=== PATIENT | male | born 1980 | race Caucasian/White ===

== ENCOUNTER 2020-07-30 23:25 | Observation (INO) | payer SELFPAY ==
[~2020-07-30] VITALS: Ht 170.2 cm; Wt 113.5 kg
[2020-07-30] MEDS ORDERED: LACTATED RINGERS 1,000 ML IV ONE (23:55)
[2020-07-31] VITALS (7 sets, daily range): BP systolic 117–139; BP diastolic 84–91
[2020-07-31] MEDS ORDERED: ONDANSETRON 4 MG/2 ML (SDV) Z0FRAN IVP ONE
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
[2020-07-31 00:14] LABS: BASOPHILS % (AUTO) 0 % (0-10); EOSINOPHILS # (AUTO) 0.2 10^3/uL (0.0-0.3); EOSINOPHILS % (AUTO) 1 % (0-10); HEMATOCRIT 47 % (40-54); HEMOGLOBIN 15.2 g/dL (13.3-17.7); LYMPHOCYTES # (AUTO) 1.7 10^3/uL (1.0-4.0); LYMPHOCYTES % (AUTO) 14 % (12-44); MEAN CORPUSCULAR HEMOGLOBIN 29 pg (25-34); MEAN CORPUSCULAR HGB CONC 33 g/dL (32-36); MEAN CORPUSCULAR VOLUME 90 fL (80-99); MEAN PLATELET VOLUME 9.4 fL (9.0-12.2); MONOCYTES # (AUTO) 0.8 10^3/uL (0.0-1.0); MONOCYTES % (AUTO) 7 % (0-12); NEUTROPHILS # (AUTO) 9.5 10^3/uL (1.8-7.8); NEUTROPHILS % (AUTO) 78 % (42-75); PLATELET COUNT 313 10^3/uL (130-400); WHITE BLOOD COUNT 12.2 10^3/uL (4.3-11.0)
[2020-07-31 00:25] LABS: ALBUMIN 4.4 GM/DL (3.2-4.5); CHLORIDE 103 MMOL/L (98-107); POTASSIUM 4.7 MMOL/L (3.6-5.0); SODIUM 137 MMOL/L (135-145)
[2020-07-31 00:26] LABS: AMYLASE 54 U/L (25-125); CALCIUM 9.2 MG/DL (8.5-10.1)
[2020-07-31 00:27] LABS: GLUCOSE 117 MG/DL (70-105)
[2020-07-31 00:28] LABS: TOTAL PROTEIN 8.2 GM/DL (6.4-8.2)
[2020-07-31 00:29] LABS: BILIRUBIN,TOTAL 0.4 MG/DL (0.1-1.0); CARBON DIOXIDE 21 MMOL/L (21-32)
[2020-07-31 00:31] LABS: ALKALINE PHOSPHATASE 74 U/L (40-136); CREATININE SERUM 1.01 MG/DL (0.60-1.30); GFR ESTIMATED > 60
[2020-07-31 00:32] LABS: BUN/CREATININE RATIO 11
[2020-07-31 00:34] LABS: ALANINE AMINOTRANSFERASE 26 U/L (0-55); MAGNESIUM 2.3 MG/DL (1.6-2.4)
[2020-07-31 00:35] LABS: LIPASE 15 U/L (8-78)
--- NOTE | 2020-07-31 01:15 | NUR ---
Pt to CT by w/c.
[2020-07-31 02:04] LABS: BILIRUBIN,URINE NEGATIVE (NEGATIVE); CLARITY,URINE CLEAR; COLOR,URINE YELLOW; GLUCOSE, URINE (UA) NEGATIVE (NEGATIVE); KETONES,URINE NEGATIVE (NEGATIVE); LEUKOCYTE ESTERASE ,URINE NEGATIVE (NEGATIVE); NITRITE,URINE NEGATIVE (NEGATIVE); PH,URINE 7.5 (5-9); PROTEIN,URINE NEGATIVE (NEGATIVE)
[2020-07-31 02:19] LABS: BACTERIA,URINE TRACE /HPF; WBC,URINE 0-2 /HPF
[2020-07-31] MEDS ORDERED: fentaNYL INJECTION 100 MCG/2 ML AMP IVP ONE (02:30)
[2020-07-31] MEDS ORDERED: PANTOPRAZOLE 40 MG (PROTONIX) VIAL IV ONE (02:30)
--- NOTE | 2020-07-31 03:27 | NUR ---
ELAN COFFEY admitted to room 421-1, with an admitting diagnosis of SBO, on 07/31/20 from ED via , accompanied by Staff.ELAN COFFEY introduced to surroundings, call light, bed controls, phone, TV, temperature control, lights, meal times, smoking policy, visitor policy, side rail policy, bathrooms and showers. Patient Rights given to patient in the handbook. ELAN COFFEY verbalizes understanding that [facility] is not responsible for the loss or damage to any personal effects or valuables that are kept in the patients posession during their hospitalization. Patient and/or family were informed about the Rapid Response Team and its purpose.
[2020-07-31] MEDS ORDERED: ONDANSETRON 4 MG/2 ML (SDV) Z0FRAN IVP PRN (03:30)
[2020-07-31] MEDS: D5 1/2 NS W/KCL 20 MEQ 1000 ML IV SCH ×4 (04:18→23:56)
[2020-07-31 06:34] LABS: BASOPHILS % (AUTO) 0 % (0-10); EOSINOPHILS # (AUTO) 0.3 10^3/uL (0.0-0.3); EOSINOPHILS % (AUTO) 3 % (0-10); HEMATOCRIT 46 % (40-54); HEMOGLOBIN 14.6 g/dL (13.3-17.7); LYMPHOCYTES # (AUTO) 2.1 10^3/uL (1.0-4.0); LYMPHOCYTES % (AUTO) 21 % (12-44); MEAN CORPUSCULAR HEMOGLOBIN 29 pg (25-34); MEAN CORPUSCULAR HGB CONC 32 g/dL (32-36); MEAN CORPUSCULAR VOLUME 91 fL (80-99); MEAN PLATELET VOLUME 9.2 fL (9.0-12.2); MONOCYTES % (AUTO) 10 % (0-12); NEUTROPHILS # (AUTO) 6.8 10^3/uL (1.8-7.8); NEUTROPHILS % (AUTO) 67 % (42-75); PLATELET COUNT 275 10^3/uL (130-400); WHITE BLOOD COUNT 10.1 10^3/uL (4.3-11.0)
[2020-07-31 06:46] LABS: ALBUMIN 3.9 GM/DL (3.2-4.5); CHLORIDE 103 MMOL/L (98-107); POTASSIUM 4.1 MMOL/L (3.6-5.0); SODIUM 136 MMOL/L (135-145)
[2020-07-31 06:48] LABS: CALCIUM 8.5 MG/DL (8.5-10.1)
[2020-07-31 06:49] LABS: GLUCOSE 127 MG/DL (70-105); TOTAL PROTEIN 7.2 GM/DL (6.4-8.2)
[2020-07-31 06:50] LABS: BILIRUBIN,TOTAL 0.4 MG/DL (0.1-1.0); CARBON DIOXIDE 22 MMOL/L (21-32)
[2020-07-31 06:52] LABS: ALKALINE PHOSPHATASE 63 U/L (40-136); CREATININE SERUM 0.96 MG/DL (0.60-1.30); GFR ESTIMATED > 60
[2020-07-31 06:53] LABS: BUN/CREATININE RATIO 9
[2020-07-31 06:55] LABS: ALANINE AMINOTRANSFERASE 22 U/L (0-55)
[2020-07-31] MEDS ORDERED: FLU QUADRIvalent (3YOA+) 60 mcg/0.5 ml 2020-21 (AFLURIA) IM ONE (07:30)
[2020-07-31] MEDS: NICOTINE 21 MG (NICODERM) PATCH TD SCH (08:00)
[2020-07-31] MEDS: PANTOPRAZOLE 40 MG (PROTONIX) VIAL IV SCH (08:00)
[2020-07-31] MEDS: fentaNYL INJECTION 100 MCG/2 ML AMP IVP PRN ×4 (08:00→23:56)
[2020-07-31] MEDS ORDERED: CALC10009 PO (09:55)
[2020-07-31] MEDS ORDERED: POLY17PO6 PO (09:55)
[2020-07-31] MEDS ORDERED: IBUP-2473 PO (09:55)
[2020-07-31] MEDS ORDERED: LEVO5TAB12 PO (09:55)
[2020-07-31] MEDS ORDERED: MULT-1136 PO (09:55)
[2020-07-31] MEDS ORDERED: LORA10TA7 PO (09:55)
[2020-07-31] MEDS ORDERED: TETR15DR81 OU (09:55)
[2020-07-31] MEDS ORDERED: DOCU100T7 PO (09:55)
[2020-07-31] MEDS ORDERED: ACET-2267 PO (09:55)
--- NOTE | 2020-07-31 11:10 | NUR ---
SPOKE WITH THE PT TO COMPLETE THE MED REC PT DENIES TAKING ANY PRESCRIPTION MEDICATIONS OTC MEDS: DOCUSATE IBUPROFEN TYLENOL MTV MIRALAX TUMS CLARITIN XYZAL EYE DROPS FOR IRRITATION
[2020-07-31] MEDS ORDERED: PROMETHAZINE INJ 25 MG/ML (PHENERGAN) AMP IVP PRN (14:15)
[2020-07-31] MEDS ORDERED: HYDROcodone/APAP 7.5 MG/325 MG (LORTAB, LORCET PLUS) TABLET PO PRN (14:15)
--- NOTE | 2020-07-31 16:21 | NUR ---
DENZEL NOTIFED OF NEED FOR DVT KIMMY
--- NOTE | 2020-07-31 16:55 | NUR ---
DENZEL ANSARI [employer], REQUEST FOR DVT PROPHY
--- NOTE | 2020-07-31 17:10 | NUR ---
HARRY RETURNED MESSAGE, NEW ORDERS RECEIVED. PATIENT EDUCATED ON NEW ORDERS AND PAIN MANAGEMENT.
[2020-07-31] MEDS ORDERED: ENOXAPARIN 40 MG/0.4 ML (LOVENOX) SYR SC SCH (17:15)
[2020-08-01 04:00] VITALS: BP 120/75
[2020-08-01] MEDS: fentaNYL INJECTION 100 MCG/2 ML AMP IVP PRN (05:03)
[2020-08-01] MEDS: D5 1/2 NS W/KCL 20 MEQ 1000 ML IV SCH ×2 (06:26→13:48)
[2020-08-01 08:00] VITALS: BP 107/73
[2020-08-01] MEDS ORDERED: DIATRIZOATE MEGLUM/SODIUM 37% 120 ML (GASTROGRAFIN) PO ONE (08:45)
[2020-08-01] MEDS ORDERED: NICOTINE PATCH REMOVAL TP SCH (08:50)
[2020-08-01] MEDS: NICOTINE 21 MG (NICODERM) PATCH TD SCH (10:47)
[2020-08-01] MEDS: PANTOPRAZOLE 40 MG (PROTONIX) VIAL IV SCH (10:47)
--- NOTE | 2020-08-01 11:19 | NUR ---
HAVING LIQUID STOOL FROM OSTOMY POST SMALL BOWEL FOLLOW THROUGH.
[2020-08-01 12:00] VITALS: BP 127/87
--- NOTE | 2020-08-01 14:04 | NUR ---
IV REMOVED. DC ORDERS REC'D. PT STATES X 5 LARGE AMOUNT STOOL FROM OSTOMY. FLU VAC ADMINISTERED PER PT REQUEST. INSTRUCTED TO REMOVE NICOTINE PATCH IF HE CHOSES TO SMOKE AFTER DISCHARGE.
--- NOTE | 2020-08-01 14:34 | NUR ---
DC'D PER W/C TO HOME.
== END 2020-08-01 14:34 | disposition home or self-care (01) ==
LOC: ER 23:33 → 4TH 23:34 → UNDOADMOB 07-31 02:20 → 4TH 07-31 02:20 → UNDODISOB 08-01 14:35
PROVIDERS: ADMIT Surgery; ATTEND Surgery
DX: K56.609 Unspecified intestinal obstruction, unspecified as to partial versus complete obstruction (principal); F17.210 Nicotine dependence, cigarettes, uncomplicated; W19.XXXA Unspecified fall, initial encounter; Z93.3 Colostomy status
CPT/HCPCS: 74176; 74250; 80053; 81000; 82150; 83690; 83735; 85025; 96361; 96374; 96375; 99284; G0378; 36415; 90686

== ENCOUNTER 2020-11-01 15:22 | Emergency (ER) | payer OTHER, MEDICAID ==
[~2020-11-01] VITALS: Ht 170.1 cm; Wt 113.3 kg
[~2020-11-01 15:22] MED LIST: ACET-2267 PO; CALC10009 PO; DOCU100T7 PO; IBUP-2473 PO; LEVO5TAB12 PO; LORA10TA7 PO; MULT-1136 PO; POLY17PO6 PO; TETR15DR81 OU
[2020-11-01] MEDS ORDERED: NS 100 ML (IVPB) BAG IV ONE (16:15)
[2020-11-01] MEDS ORDERED: CATHETER FLUSH 10 ML SYR IV PRN (16:15)
[2020-11-01] MEDS ORDERED: HOLD METFORMIN - RECEIVED CONTRAST 20 ML VIAL IV SCH (16:15)
[2020-11-01] MEDS ORDERED: IOHEXOL 350 MG/ML 100 ML (OMNIPAQUE 350) VIAL IV ONE (16:15)
[2020-11-01 16:27] LABS: BASOPHILS # (AUTO) 0.1 10^3/uL (0.0-0.1); BASOPHILS % (AUTO) 1 % (0-10); EOSINOPHILS # (AUTO) 0.4 10^3/uL (0.0-0.3); EOSINOPHILS % (AUTO) 4 % (0-10); HEMATOCRIT 43 % (40-54); HEMOGLOBIN 14.1 g/dL (13.3-17.7); LYMPHOCYTES # (AUTO) 1.9 10^3/uL (1.0-4.0); LYMPHOCYTES % (AUTO) 20 % (12-44); MEAN CORPUSCULAR HEMOGLOBIN 29 pg (25-34); MEAN CORPUSCULAR HGB CONC 33 g/dL (32-36); MEAN CORPUSCULAR VOLUME 89 fL (80-99); MEAN PLATELET VOLUME 9.3 fL (9.0-12.2); MONOCYTES # (AUTO) 0.8 10^3/uL (0.0-1.0); MONOCYTES % (AUTO) 9 % (0-12); NEUTROPHILS % (AUTO) 66 % (42-75); PLATELET COUNT 281 10^3/uL (130-400); WHITE BLOOD COUNT 9.2 10^3/uL (4.3-11.0)
[2020-11-01] MEDS ORDERED: fentaNYL INJECTION 100 MCG/2 ML AMP IVP ONE (16:30)
[2020-11-01 16:37] LABS: CHLORIDE 107 MMOL/L (98-107); SODIUM 138 MMOL/L (135-145)
[2020-11-01 16:38] LABS: CALCIUM 8.5 MG/DL (8.5-10.1)
[2020-11-01 16:39] LABS: GLUCOSE 98 MG/DL (70-105)
[2020-11-01 16:40] LABS: CARBON DIOXIDE 20 MMOL/L (21-32); POTASSIUM 5.2 MMOL/L (3.6-5.0)
[2020-11-01 16:41] LABS: BILIRUBIN,TOTAL 0.6 MG/DL (0.1-1.0)
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
[2020-11-01 16:42] LABS: ALKALINE PHOSPHATASE 71 U/L (40-136)
[2020-11-01 16:43] LABS: CREATININE SERUM 1.03 MG/DL (0.60-1.30); GFR ESTIMATED > 60
[2020-11-01 16:44] LABS: BUN/CREATININE RATIO 13
[2020-11-01 16:45] LABS: ALANINE AMINOTRANSFERASE 37 U/L (0-55)
[2020-11-01 16:46] LABS: LIPASE 38 U/L (8-78)
--- NOTE | 2020-11-01 16:53 | Diagnostic Imaging Report ---
INDICATION: Post 6' fall from ladder yesterday. Pain TECHNIQUE: Three views of the right hand. CORRELATION STUDY: None FINDINGS: There is normal alignment and appearance of the osseous structures of the hand. The joint spaces are maintained. There is no acute fracture. Slight edema along the radial and dorsal aspect of the hand. IMPRESSION: 1. Negative for acute bony abnormality of the hand. Soft tissue edema. Dictated by: Dictated on workstation # [id number]
--- NOTE | 2020-11-01 17:06 | Diagnostic Imaging Report ---
CT ABDOMEN/PELVIS W TECHNIQUE: Multiple contiguous axial images were obtained through the abdomen and pelvis after administration of intravenous contrast. All CT scans use one or more of the following dose optimizing techniques: automated exposure control, MA and/or KvP adjustment based on a patient size and exam type, or iterative reconstruction. INDICATION: Left lower quadrant pain. Abdominal pain after fall. COMPARISON: CT abdomen pelvis of 07/31/2020 FINDINGS: Lower chest: The lung bases are clear. No pericardial or pleural effusion. Peritoneum: No free intraperitoneal air or fluid. Liver and biliary system: Diffuse hypoattenuation of liver is unchanged and indicative of hepatic steatosis. No focal hepatic lesion. The main portal vein is patent. The gallbladder is normal. No biliary duct dilation. Spleen and Pancreas: Spleen is normal. The pancreas enhances normally without mass lesion or peripancreatic inflammatory changes. Adrenals: Normal. tract: The kidneys enhance normally without suspicious mass or obstruction. Urinary bladder is distended without wall thickening. Prostate is normal in appearance. GI tract: Stomach is partially filled with fluid. There is a left lower quadrant diverting colostomy which has a small parastomal hernia present containing peritoneal fat. There are no unintended hernia loops of small bowel or colon within the parastomal hernia. No pericolonic inflammatory changes. Appendectomy. Vasculature and Lymph nodes: Normal caliber aorta. No abdominal or pelvic lymphadenopathy. Musculoskeletal: No acute fracture. Prior ORIF of left ilium fracture utilizing a reconstruction plate and screws. IMPRESSION: 1. No acute intra-abdominal process. 2. Left lower quadrant colostomy has a small parastomal hernia containing fat that is stable in appearance since 07/31/2020. 3. Unchanged diffuse hepatic steatosis. Dictated by: Dictated on workstation # [id number]
[2020-11-01 17:33] LABS: BILIRUBIN,URINE NEGATIVE (NEGATIVE); CLARITY,URINE CLEAR; COLOR,URINE YELLOW; GLUCOSE, URINE (UA) NEGATIVE (NEGATIVE); KETONES,URINE NEGATIVE (NEGATIVE); LEUKOCYTE ESTERASE ,URINE NEGATIVE (NEGATIVE); NITRITE,URINE NEGATIVE (NEGATIVE); PROTEIN,URINE NEGATIVE (NEGATIVE)
[2020-11-01] MEDS ORDERED: KETOROLAC 30 MG/ML VIAL IVP ONE (17:45)
[2020-11-01 17:59] LABS: BACTERIA,URINE NEGATIVE /HPF
[2020-11-01 18:30] VITALS: BP 141/96
== END 2020-11-01 18:30 | disposition home or self-care (01) ==
LOC: EDUNIT# 15:22 → ER 15:23
DX: S60.221A Contusion of right hand, initial encounter (principal); R10.32 Left lower quadrant pain; F17.210 Nicotine dependence, cigarettes, uncomplicated; W11.XXXA Fall on and from ladder, initial encounter
CPT/HCPCS: 36415; 73130; 74177; 80053; 81000; 83690; 85025

== ENCOUNTER 2020-11-12 10:12 | Emergency (ER) | payer MEDICAID ==
[~2020-11-12] VITALS: Ht 170 cm; Wt 113.0 kg
--- NOTE | 2020-11-12 11:17 | Diagnostic Imaging Report ---
INDICATION: Abdominal pain with cramping. Ostomy pain. FINDINGS: There is orthopedic hardware present along the left iliac wing with a healed fracture. The SI joints and pubic symphysis are in good alignment. The bowel gas pattern appears normal without evidence of bowel obstruction. There is not a large burden of stool noted within the colon. No organomegaly. No pathologic calcifications. The patient has an ostomy in the left upper abdomen. IMPRESSION: 1. No evidence of bowel obstruction. No findings to indicate constipation. 2. Surgical changes noted of the left iliac wing. Dictated by: Dictated on workstation # [id number]
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
[2020-11-12 11:55] VITALS: BP 134/95
== END 2020-11-12 11:55 | disposition home or self-care (01) ==
LOC: EDUNIT# 10:12 → ER 10:14
DX: R10.84 Generalized abdominal pain (principal); F17.210 Nicotine dependence, cigarettes, uncomplicated
CPT/HCPCS: 74018; 99282

== ENCOUNTER 2021-09-23 05:43 | Outpatient (CLI) | payer MEDICAID ==
[~2021-09-23] VITALS: Ht 170.2 cm; Wt 109.0 kg
[~2021-09-23 05:43] MED LIST changes: +TETR-53 OU; -TETR15DR81 OU
== END 2021-09-25 10:26 | disposition home or self-care (01) ==
LOC: PREOP 05:43
PROVIDERS: ATTEND Surgery
DX: Z01.818 Encounter for other preprocedural examination (principal)

== ENCOUNTER 2021-09-30 07:35 | Inpatient (IN) | payer MEDICAID ==
[~2021-09-30] VITALS: Ht 170.2 cm; Wt 109.0 kg
[2021-09-30] VITALS (12 sets, daily range): BP systolic 120–147; BP diastolic 75–99
[2021-09-30] MEDS ORDERED: LIDOCAINE/EPI 1%-1:200,000 (XYLOCAINE) 30 ML VIAL ONE (07:56)
[2021-09-30] MEDS ORDERED: GLYCOPYRROLATE 0.2 MG/ML (ROBINUL) 2 ML VIAL ONE (08:11)
[2021-09-30] MEDS ORDERED: LIDOCAINE PF 2% 5 ML (XYLOCAINE) VIAL ONE (08:11)
[2021-09-30] MEDS ORDERED: MIDAZOLAM 2 MG/2 ML (VERSED) VIAL ONE (08:11)
[2021-09-30] MEDS ORDERED: ONDANSETRON 4 MG/2 ML (SDV) Z0FRAN ONE (08:11)
[2021-09-30] MEDS ORDERED: proPOfol 200 MG/20 ML (DIPRIVAN) VIAL IV ONE (08:11)
[2021-09-30] MEDS ORDERED: fentaNYL INJ 100 MCG/2 ML AMP ONE (08:11)
[2021-09-30] MEDS ORDERED: ROCURONIUM 10 MG/ML 5 ML SYRINGE IV ONE ×2 (08:11→10:37)
[2021-09-30] MEDS ORDERED: NEOSTIGMINE 3 MG/3 ML VIAL ONE (08:11)
--- NOTE | 2021-09-30 08:16 | Progress Note-Pre Operative ---
Pre-Operative Progress Note H&P Reviewed The H&P was reviewed, patient examined and no changes noted. Time Seen by Provider: 08:14 Date H&P Reviewed: Sep 30, 2021 Time H&P Reviewed: 08:14 Pre-Operative Diagnosis: Colostomy, Parastomal hernia, Ventral/incisional h CALEB Sharp DO Sep 30, 2021 08:16
[2021-09-30] MEDS ORDERED: ceFAZolin 2 GM IV Premixed 50 ML ONE (08:18)
[2021-09-30] MEDS ORDERED: ceFAZolin 2 GM IV Premixed 50 ML IV ONE (08:30)
[2021-09-30] MEDS: LACTATED RINGERS 1,000 ML IV PRN ×2 (08:39→11:15)
[2021-09-30] MEDS ORDERED: SEVOFLURANE (ULTANE) 15 ML INHAL SOLN ONE ×2 (11:03→12:53)
[2021-09-30] MEDS ORDERED: PROMETHAZINE INJ 25 MG/ML (PHENERGAN) AMP IVP ONE (13:15)
[2021-09-30] MEDS ORDERED: HYDROmorphone 2 MG/ML VIAL (DILAUDID) IV ONE (13:15)
[2021-09-30] MEDS ORDERED: ONDANSETRON 4 MG/2 ML (SDV) Z0FRAN IVP PRN ×2 (13:15→16:30)
[2021-09-30] MEDS ORDERED: morphine INJ 10 MG/ML 1ML (SYR OR VIAL) IVP ONE (13:15)
[2021-09-30] MEDS ORDERED: MEPERIDINE (DEMEROL) INJ 50 MG/ML IVP ONE (13:15)
[2021-09-30] MEDS ORDERED: ACETAMINOPHEN 500 MG TAB (TYLENOL) PO PRN (15:00)
[2021-09-30] MEDS ORDERED: morphine INJ 4 MG/ML 1 ML (VIAL/SYRINGE) IVP PRN (15:15)
--- NOTE | 2021-09-30 16:17 | Progress Note-Post Operative ---
Post-Operative Progess Note Surgeon (s)/Dairy Farm Supervisor (s) Surgeon CALEB GREEN DO Dairy Farm Supervisor: Quentin Pre-Operative Diagnosis Colostomy, Parastomal hernia, Ventral/incisional hernia Post-Operative Diagnosis same Procedure & Operative Findings Date of Procedure 09/30/21 Procedure Performed/Findings Laparoscopic with hand assist Colostomy take down and primary anastomosis Lysis of adhesions Closure of parastomal hernia Anesthesia Type GET Estimated Blood Loss Estimated blood loss (mL): 200ml Specimens/Packing Specimens Removed portion of descending colon, "donuts" of tissue from anastomosis CALEB GREEN DO Sep 30, 2021 16:17
[2021-09-30] MEDS: ceFAZolin 2 GM IV Premixed 50 ML IV SCH (17:21)
[2021-09-30] MEDS: metroNIDAZOLE 500MG/100ML IVPB 100 ML IV SCH (17:23)
[2021-09-30] MEDS: LACTATED RINGERS 1,000 ML IV SCH (17:23)
[2021-09-30] MEDS: KETOROLAC 30 MG/ML VIAL IVP PRN (17:24)
[2021-10-01] MEDS: KETOROLAC 30 MG/ML VIAL IVP PRN ×2 (00:01→08:46)
[2021-10-01] MEDS: ceFAZolin 2 GM IV Premixed 50 ML IV SCH (00:25)
[2021-10-01] MEDS: metroNIDAZOLE 500MG/100ML IVPB 100 ML IV SCH (00:53)
[2021-10-01] MEDS: LACTATED RINGERS 1,000 ML IV SCH ×2 (01:58→10:04)
[2021-10-01 04:00] VITALS: BP 116/65
--- NOTE | 2021-10-01 07:50 | Progress Note - Surgery ---
BAIRON QUEVEDO MED STUDENT 10/01/21 0750: Subjective Date Seen by a Provider: Oct 01, 2021 Time Seen by a Provider: 07:25 Subjective/Events-last exam Mr. Owen is sleeping in bed this morning but he is easily woken. He states he does have quite a bit of pain under his rib cage, rates it about a 7. Says that he is not sure it is managed well enough on his current pain meds. He has been able to drink some liquids, no nausea/vomiting or pain with any of that. He is still peeing okay. No BM or gas yet. Has not gotten out of bed or walked any, not sure if he will do any PT during his stay. His incisions are closed and not leaking. Review of Systems General: No Chills HEENT: No Head Aches, No Visual Changes Pulmonary: No Dyspnea, No Cough Cardiovascular: No: Chest Pain, Palpitations, Edema Gastrointestinal: Abdominal Pain; No: Nausea, Vomiting, Diarrhea, Constipation, Melena Genitourinary: No Dysuria, No Incontinence, No Hematuria Musculoskeletal: No: leg pain, foot pain Objective Exam Vital Signs Date Time Temp Pulse Resp B/P (MAP) Pulse Ox O2 Delivery O2 Flow Rate FiO2 10/01/21 04:00 36.4 92 22 116/65 (82) 93 Nasal Cannula 2.00 10/01/21 00:01 36.6 09/30/21 23:56 36.6 97 22 120/75 (90) 98 Nasal Cannula 2.00 09/30/21 21:00 Nasal Cannula 2.00 09/30/21 20:00 36.3 68 20 120/80 (93) 98 Nasal Cannula 2.00 09/30/21 14:08 36.1 98 20 129/83 (98) 93 Nasal Cannula 2.00 09/30/21 14:05 Nasal Cannula 3 09/30/21 14:00 36.1 22 134/89 (104) 95 Nasal Cannula 3 09/30/21 13:50 20 133/91 (105) 99 OxyMask 10 09/30/21 13:45 21 121/83 (96) 100 OxyMask 10 09/30/21 13:40 24 147/99 (115) 99 OxyMask 10 09/30/21 13:30 22 138/99 (112) 100 OxyMask 10 09/30/21 13:27 OxyMask 10 09/30/21 13:20 18 135/98 (110) 100 OxyMask 10 09/30/21 13:10 16 133/98 (110) 99 OxyMask 10 09/30/21 13:05 OxyMask 10 09/30/21 13:05 36.5 22 127/87 (100) 95 OxyMask 10 09/30/21 08:37 36.5 95 20 125/88 (100) 95 Room Air 09/30/21 08:00 Room Air I & O 10/01/21 07:00 Intake Total 1200 ml Output Total 1020 ml Balance 180 ml Capillary Refill : General Appearance: No Apparent Distress (uncomfortable), WD/WN HEENT: PERRL/EOMI, Pharynx Normal, Moist Mucous Membranes Respiratory: Chest Non Tender, Lungs Clear, Normal Breath Sounds, No Accessory Muscle Use, No Respiratory Distress Cardiovascular: Regular Rate, Rhythm, No Edema, No Murmur, Normal Peripheral Pulses Peripheral Pulses: 2+ Dorsalis Pedis (R), 2+ Left Dors-Pedis (L), 2+ Radial Pulses (R), 2+ Radial Pulses (L) Gastrointestinal: soft, abnormal bowel sounds (very hypoactive); No guarding; tenderness Extremity: Normal Inspection, Non Tender, No Calf Tenderness, No Pedal Edema Neurologic/Psychiatric: Oriented x3, Normal Mood/Affect Skin: Normal Color, Warm/Dry, Other (Incisions are covered, bandages not soiled, no leaking. minimal erythema) Assessment/Plan Assessment/Plan Admission Diagonsis S/P Colostomy reversal Day 1 Pts pain has been a little high, he is currently on Toradol and morphine. Has not passed any gas. Will continue on liquid diet for a bit before moving to soft foods. He is not having problems with pain, nausea, or vomiting this morning. He should be able to get up and walk around today which will also help his bowels to move. Will check his incisions daily to make sure they are still looking okay. He should be able to be discharged after his pain is controlled, has some gas or BM, and is able to handle soft foods or at least liquids with no pr oblems. LEV GREEN DO 10/01/21 1344: Subjective Time Seen by a Provider: 12:31 Subjective/Events-last exam Pt seen and examined, states pain is mostly controlled and he is tolerating brian ars. Most pain is across upper abdomen. Review of Systems General: No Chills Pulmonary: No Dyspnea, No Cough Cardiovascular: No: Chest Pain, Palpitations Gastrointestinal: Abdominal Pain; No: Nausea, Vomiting Objective Exam General Appearance: No Apparent Distress (uncomfortable), Obese HEENT: PERRL/EOMI Respiratory: Lungs Clear, Normal Breath Sounds, No Accessory Muscle Use Cardiovascular: Regular Rate, Rhythm, No Murmur Gastrointestinal: soft, abnormal bowel sounds (very hypoactive); No guarding; tenderness, other (incisions bandaged, but no signs of bleeding) Assessment/Plan Assessment/Plan Assessment/Plan S/P Colostomy reversal Day 1 Pts pain has been a little high, he was supposed to be on Toradol and Tylenol scheduled; will change that. Start soft diet and d/c piña. Pt encouraged to ambulate and use IS. Supervisory-Addendum Brief Verification & Attestation Participated in pt care: history, MDM, physical Personally performed: exam, history, MDM, supervision of care Care discussed with: Medical Student Procedures: n/a Verification and Attestation of Medical Student E/M Service A medical student performed and documented this service. I then reviewed and verified all information documented by the medical student and made modifications to such information, when appropriate. I personally performed a physical exam, medical decision making and then discussed any differences between the notes and made revisions as necessary to create one note. Lev Green , 10/01/21 , 13:44 BAIRON QUEVEDO MED STUDENT Oct 01, 2021 07:50 LEV GREEN DO Oct 01, 2021 13:44
[2021-10-01 08:22] VITALS: BP 107/59
[2021-10-01] MEDS: PANTOPRAZOLE 40 MG (PROTONIX) VIAL IVP SCH (08:46)
--- NOTE | 2021-10-01 09:32 | Anesthesia-General Post-Op ---
General Patient Condition Mental Status/LOC: Same as Preop Cardiovascular: Satisfactory Nausea/Vomiting: Absent Respiratory: Satisfactory Pain: Controlled Complications: Absent Post Op Complications Complications None Follow Up Care/Instructions Patient Instructions None needed. Anesthesia/Patient Condition Patient Condition Patient is doing well, no complaints, stable vital signs, no apparent adverse anesthesia problems. No complications reported per nursing. LEXX GILL CRNA Oct 01, 2021 09:32
[2021-10-01 12:05] VITALS: BP 112/69
[2021-10-01] MEDS ORDERED: ACETAMINOPHEN 500 MG TAB (TYLENOL) PO SCH (13:30)
[2021-10-01] MEDS ORDERED: ENOXAPARIN 40 MG/0.4 ML (LOVENOX) SYR SC SCH (13:30)
[2021-10-01] MEDS: KETOROLAC 30 MG/ML VIAL IVP SCH ×3 (13:57→23:53)
[2021-10-01] MEDS: ACETAMINOPHEN 500 MG TAB (TYLENOL) PO SCH ×2 (13:57→21:39)
[2021-10-01] MEDS ORDERED: KETOROLAC 30 MG/ML VIAL IVP SCH (14:00)
[2021-10-01 16:00] VITALS: BP 120/75
[2021-10-01 20:00] VITALS: BP 126/78
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
[2021-10-02 00:45] VITALS: BP 119/77
[2021-10-02 04:15] VITALS: BP 126/75
[2021-10-02] MEDS: ACETAMINOPHEN 500 MG TAB (TYLENOL) PO SCH ×2 (06:15→13:00)
[2021-10-02] MEDS: KETOROLAC 30 MG/ML VIAL IVP SCH ×2 (06:17→11:07)
[2021-10-02 07:33] VITALS: BP 111/74
--- NOTE | 2021-10-02 07:42 | Progress Note - Surgery ---
GALARZAOLIVER 10/02/21 0742: Subjective Date Seen by a Provider: Oct 02, 2021 Time Seen by a Provider: 07:35 Subjective/Events-last exam Jh Owen is a 40 year old male admitted inpatient following a colostomy reversal and adhesiolysis procedure. He was asleep but easily arroused this morning. He has been passing gas since yesterday. Hasn't had a BM yet, and doesn't necessarily feel like he needs to. Reports getting up and walking 3 times yesterday. Eating and drinking okay. On DYS3 Diet. Still having abdominal pain worse in his epigastric area that he rates 7/10. He feels like it may be mildly better than yesterday (rated it 7/10 yesterday as well). Currently receiv ing Ketorolac 30mg Q6H and Tyelenol 1,000mg Q8hr. Has Morphine for break through pain but hasn't had to ask for it and doesn't want to. Review of Systems General: No Chills, No Night Sweats HEENT: No Head Aches, No Visual Changes, No Sore Throat Pulmonary: No Dyspnea, No Cough Cardiovascular: No: Chest Pain, Palpitations Gastrointestinal: Abdominal Pain (worse in epigastric area); No: Nausea, Vomiting, Diarrhea Genitourinary: No Dysuria, No Hematuria (had mild pinkness in urine when catheter was removed yesterday, none now.) Musculoskeletal: other (Reports no pain elsewhere other than abdomen) Neurological: No: Weakness, Numbness Objective Exam Vital Signs Date Time Temp Pulse Resp B/P (MAP) Pulse Ox O2 Delivery O2 Flow Rate FiO2 10/02/21 04:15 36.8 86 20 126/75 (92) 96 Room Air 10/02/21 00:45 37.4 92 20 119/77 (91) 94 Room Air 10/01/21 21:39 Room Air 10/01/21 20:00 36.2 87 20 126/78 (94) 94 Room Air 10/01/21 16:00 36.1 95 20 120/75 (90) 91 Room Air 10/01/21 12:05 36.4 81 20 112/69 (83) 91 Room Air 10/01/21 09:00 Nasal Cannula 2.00 10/01/21 08:22 36.8 85 20 107/59 (75) 95 Nasal Cannula 2.00 I & O 10/02/21 07:00 Intake Total 1910 ml Output Total 850 ml Balance 1060 ml Capillary Refill : General Appearance: No Apparent Distress (uncomfortable), Obese HEENT: PERRL/EOMI, Moist Mucous Membranes Neck: No Lymphadenopathy (L), No Lymphadenopathy (R), No Thyromegaly Respiratory: Lungs Clear, Normal Breath Sounds, No Accessory Muscle Use Cardiovascular: Regular Rate, Rhythm, No Murmur Peripheral Pulses: 2+ Dorsalis Pedis (R), 2+ Left Dors-Pedis (L), 2+ Radial Pulses (R), 2+ Radial Pulses (L) Gastrointestinal: soft, abnormal bowel sounds (hypoactive); No guarding; tenderness (diffusely tender, worst in epigastric area.), other (5 bandages present. visualized wound underneath largest bandage. no bleeding or dehiscence presence. No signs of bleeding at other sights.) Extremity: Normal Inspection, Non Tender, No Calf Tenderness, No Pedal Edema Neurologic/Psychiatric: Oriented x3, Normal Mood/Affect Skin: Normal Color, Warm/Dry, Tattoos/Piercings (Tattoos on bilateral shoulders), Other (Incisions are covered, bandages are non soiled. No signs of spreading erythema. ) Results Lab Microbiology 09/30/21 MRSA Screen - Final, Complete MRSA not isolated Assessment/Plan Assessment/Plan Assessment/Plan S/P Colostomy reversal and adhesiolysis day 2 -Patient still has some discomfort. Currently receiving Ketorolac 30mg Q6h and Tyelenol 1,000mg Q8 hr. Reports the ketorolac works well, the tyelenol less so. Has Morphine for break through pain, but hasn't needed/wanted it. Will continue current pain regimen for now and consider changing if patient feels the pain is too much and doesn't want morphine. -Has been passing gas, eating soft foods, and drinking fluids. All good signs. Has been walking and should continue to. Will consider starting patient on a stool softener such as Colace if he continues to go without having a BM. -Patient has been using inspiratory spirometer and should continue to for prevention of pneumonia. -Continue Enoxaparin for DVT Prophylaxis. CALEB DUTTA DO 10/02/21 1039: Subjective Time Seen by a Provider: 09:41 Subjective/Events-last exam Pt seen and examined, states pain is controlled and he just had 2 BMs. Tolerating soft diet. Wants to go home. Review of Systems General: No Chills, No Night Sweats Cardiovascular: No: Chest Pain, Palpitations Gastrointestinal: Abdominal Pain (minimal and mostly at incisions); No: Nausea, Vomiting Objective Exam General Appearance: No Apparent Distress (uncomfortable) Respiratory: Lungs Clear, Normal Breath Sounds, No Accessory Muscle Use Cardiovascular: Regular Rate, Rhythm Gastrointestinal: soft, tenderness (minimal, mainly at incisions), other (bandages removed, glo in place, everything C/D/I) Assessment/Plan Assessment/Plan Assessment/Plan S/P Colostomy reversal and adhesiolysis day 2 Pain controlled with meds and not taking morphine, tolerating soft diet. Will get regular diet for lunch and then d/c home. Supervisory-Addendum Brief Verification & Attestation Participated in pt care: history, MDM, physical Personally performed: exam, history, MDM, supervision of care Care discussed with: Medical Student Procedures: n/a Verification and Attestation of Medical Student E/M Service A medical student performed and documented this service. I then reviewed and verified all information documented by the medical student and made modifications to such information, when appropriate. I personally performed a physical exam, medical decision making and then discussed any differences between the notes and made revisions as necessary to create one note. Caleb Dutta , 10/02/21 , 10:39 OLIVER GALARZA Oct 02, 2021 07:42 CALEB DUTTA DO Oct 02, 2021 10:39
[2021-10-02] MEDS: PANTOPRAZOLE 40 MG (PROTONIX) VIAL IVP SCH (08:50)
--- NOTE | 2021-10-02 10:45 | Discharge Inst-Surgical ---
Discharge Inst-Surgical Depart Medication/Instructions New, Converted or Re-Newed RX: Other (use ibuprofen and tylenol) Patient Instructions Follow up Appt: Make appointment for 1 week. [phone] Instructions: No lifting greater than 20 pounds. No strenuous activity. May shower in 24 hours, no tub bath or soaking. Use incentive spirometer at home as directed. No Smoking Skin/Wound Care: May remove bandages in am. You need to leave the glo in place and come to office to have them removed. I also told him about seroma that is most likely to occur at colostomy sight. Symptoms to Report: Appetite Changes, Extremity Discoloration, Numbness/Tingling, Swelling Increased, Bleeding Excessive, Eyesight Changes, Pain Increased, Urine Color Change, Constipation(Persistent), Fever over 101 degree F, Pain/Pressure in chest, Urinating Difficulty, Cough Up/Vomit Blood, Heart Beat Irreg/Pounding, Pain/Pressure in jaw, Cramps in feet or legs, Lightheadedness, Pain/Pressure in shoulder, Diarrhea(Persistent), Memory Changes Suddenly, Questions/Concerns, Weight gain consecutive days, Dizziness/Fainting, Nausea/Vomiting, Shortness of Breath, Weight gain over 2 pounds If questions or concerns contact your physician Or seek help at emergency department. Activity Activity as Tolerated: Yes Activity Instructions: Avoid Stress to Incision Driving Instructions: No Driving/Refer to Dr. Myles Discharge Diet: No Restrictions (increased fluids) Diet After 24 Hours: Clear Liquid if Nauseous If Any Problems/Questions/Issu: Contact Your Physician, Go to Emergency Room Skin/Wound Care Infection Signs and Symptoms: Increased Redness, Foul Odor of Wound, Increased Drainage, Skin Itchy or Has a Rash, Increased Swelling, Temperature Above 101 F Bathing Instructions: Shower Stitches/[place]/Dermabond Dis: Care of [place] CALEB GREEN DO Oct 02, 2021 10:45
[2021-10-02 11:56] VITALS: BP 116/74
[2021-10-02] MEDS ORDERED: KETO10TA PO (12:34)
[2021-10-02 13:14] VITALS: BP 116/74
== END 2021-10-02 13:04 | disposition home or self-care (01) | DRG 331 ==
LOC: 4TH 07:35 → SURG 07:36 → 4TH 14:05
PROVIDERS: ADMIT Surgery; ATTEND Surgery
PROC: 0DQN0ZZ Repair Sigmoid Colon, Open Approach (ICD-10-PCS; 2021-09-30)
PROC: 0WQF0ZZ Repair Abdominal Wall, Open Approach (ICD-10-PCS; principal; 2021-09-30 09:12)
DX: K43.5 Parastomal hernia without obstruction or gangrene (principal); K43.2 Incisional hernia without obstruction or gangrene; F17.210 Nicotine dependence, cigarettes, uncomplicated; E66.9 Obesity, unspecified; Z68.37 Body mass index [BMI] 37.0-37.9, adult
CPT/HCPCS: 87081